=== PATIENT | female | born 1970 | race Caucasian/White ===

== ENCOUNTER 2021-03-12 13:27 | Emergency (ER) | payer OTHER ==
[~2021-03-12] VITALS: Ht 165.1 cm; Wt 90.7 kg
[2021-03-12] MEDS ORDERED: KETOROLAC TROMETHAMINE 30 MG/ML VIAL IM STA (13:58)
[2021-03-12 16:17] VITALS: BP 133/76
== END 2021-03-12 16:26 | disposition home or self-care (01) ==
LOC: ER 13:45
DX: Z47.89 Encounter for other orthopedic aftercare (principal); M25.572 Pain in left ankle and joints of left foot; I10 Essential (primary) hypertension; E11.9 Type 2 diabetes mellitus without complications; K76.9 Liver disease, unspecified; I50.9 Heart failure, unspecified; F41.9 Anxiety disorder, unspecified; F17.210 Nicotine dependence, cigarettes, uncomplicated
CPT/HCPCS: 29515; 73590; 73610; 99284; J1885

== ENCOUNTER 2021-04-30 08:43 | Emergency (ER) | payer OTHER ==
[~2021-04-30] VITALS: Ht 165.1 cm; Wt 90.7 kg
[2021-04-30] MEDS ORDERED: IBUPROFEN 600 MG TAB PO ONE (10:21)
== END 2021-04-30 15:05 ==
LOC: ER 08:46
DX: M25.552 Pain in left hip (principal); W18.30XD Fall on same level, unspecified, subsequent encounter; I10 Essential (primary) hypertension; E11.9 Type 2 diabetes mellitus without complications; I50.9 Heart failure, unspecified; K76.9 Liver disease, unspecified; F41.9 Anxiety disorder, unspecified
CPT/HCPCS: 99283